=== PATIENT | female | born 2000 | race Caucasian/White ===

== ENCOUNTER 2020-08-07 21:25 | Observation (INO) ==
[2020-08-07 23:26] LABS: Amorphous Sediment,Urine Few per hpf (None-Few); Bacteria,Urine Few per hpf (None-Few); Bilirubin,Urine Negative (Negative); Blood,Urine Small (Negative); Clarity,Urine Turbid (Clear); Color,Urine Light-Yellow (Yellow); Glucose,Urine (UA) Normal (Normal); Hyaline Casts,Urine Few per lpf (None Seen); Ketones,Urine 60 mg/dL (Negative); Leukocyte Esterase,Urine Large (Negative); Mucus,Urine Moderate per lpf (None-Few); Nitrite,Urine Negative (Negative); PH,Urine 6.5 pH Units (5.0-8.0); Protein,Urine 100 mg/dL (Neg-Trace); RBC,Urine TNTC per hpf (0-3); Specific Gravity,Urine 1.015 (1.010-1.025); Urobilinogen,Urine Normal (Normal); WBC,Urine TNTC per hpf (0-3)
[2020-08-07] MEDS ORDERED: Ringers Solution, Lactated 1,000 ML IVC ONE (23:31)
[2020-08-07] MEDS ORDERED: cefTRIAXone 1,000 MG in Water for inj. (sterile) 10 ML IVP ONE (23:31)
[2020-08-08 00:02] LABS: Candida DNA DETECTED (Not Detect); Gardnerella DNA DETECTED (Not Detect); Trichomonas DNA DETECTED (Not Detect)
[2020-08-08] MEDS ORDERED: MetroNIDAZOLE 500 MG/100 ML 500 MG/100 ML BAG IVPB ONE (00:05)
[2020-08-08] MEDS ORDERED: metroNIDAZOLE 500 MG TABLET PO ONE (00:08)
[2020-08-11 11:00] LABS: SARS-CoV-2 by NAA Not Detected (Not Detect)
== END 2020-08-08 01:25 | disposition home or self-care (01) ==
LOC: 1NENULAB
PROVIDERS: ADMIT Obstetrics & Gynecology; ATTEND Obstetrics & Gynecology

== ENCOUNTER 2020-08-23 08:00 | Inpatient (IN) ==
[2020-08-23] MEDS ORDERED: Naloxone 0.4 MG/ML INJ IVP PRN (08:09)
[2020-08-23] MEDS ORDERED: Metoclopramide 10 MG/2 ML VIAL IVP PRN (08:09)
[2020-08-23] MEDS ORDERED: Ondansetron 4 MG/2 ML VIAL IVP PRN (08:09)
[2020-08-23] MEDS ORDERED: Famotidine 20 MG/2 ML VIAL IVP PRN (08:09)
[2020-08-23] MEDS ORDERED: miSOPROStoL 25 MCG TABLET VG SCH (08:45)
[2020-08-23 08:49] LABS: Basophils % 0.3 %; Eosinophils # 0.1 K/mcL (0.0-0.6); Eosinophils % 1.5 %; Hematocrit 29.9 % (35.3-44.9); Hemoglobin 9.4 g/dL (11.5-15.4); Immature Granulocytes % 0.3 % (0-4); Lymphocytes # 1.5 K/mcL (0.6-4.6); Lymphocytes % 23.7 %; Mean Corpuscular HGB Conc 31.4 g/dL (31.6-35.5); Mean Corpuscular Hemoglobin 25.5 pg (28.0-33.3); Mean Platelet Volume 10.5 fL (9.4-12.4); Monocytes # 0.6 K/mcL (0.0-1.3); Monocytes % 10.3 %; Neutrophils # 3.9 K/mcL (1.6-8.9); Platelet Count 337 K/mcL (140-400); Red Blood Count 3.69 M/mcL (3.82-4.97); Red Cell Distribution Width 12.5 % (11.5-14.5); Segmented Neutrophils % 63.9 %; White Blood Count 6.1 K/mcL (4.3-11.1)
[2020-08-23] MEDS: Ringers Solution, Lactated 1,000 ML IVC SCH ×2 (09:21→20:04)
[2020-08-23] MEDS ORDERED: Ringers Solution, Lactated 500 ML IVC ONE (09:23)
[2020-08-23] MEDS ORDERED: Acetaminophen 325 MG TABLET PO ONE (09:23)
[2020-08-23] MEDS ORDERED: EPHEDrine 50 MG/ML VIAL IVP PRN (09:59)
[2020-08-23] MEDS ORDERED: Epidural Premix (fent/bupiv) 110 ML EP SCH (10:00)
[2020-08-23 10:50] LABS: Alanine Aminotransferase 5 Units/L (7-52); Aspartate Amino Transferase 11 Units/L (13-39); Lactate Dehydrogenase 152 Units/L (140-271); Uric Acid 4.9 mg/dL (2.3-7.6); eGFR For African Americans > 60 (> 60); eGFR For Non-African Americans > 60 (> 60)
[2020-08-23 11:23] LABS: Amphetamine Screen,Urine Negative ng/mL (Cutoff=1000); Barbiturate Screen,Urine Negative ng/mL (Cutoff=200); Benzodiazepines Screen,Urine Negative ng/mL (Cutoff=200); Cannabinoid Screen,Urine Negative ng/mL (Cutoff = 50); Cocaine Screen,Urine Negative ng/mL (Cutoff= 300); Opiate Screen,Urine Negative ng/mL (Cutoff=300); Phencyclidine Screen,Urine Negative ng/mL (Cutoff=25)
[2020-08-23 11:40] LABS: Protein/Creatinine Ratio,Urine 4.2 mg/mg (0.00-0.20)
[2020-08-23] MEDS ORDERED: Calcium Gluconate 1,000 MG/10 ML VIAL IVP PRN ×2 (11:44→23:38)
[2020-08-23] MEDS ORDERED: Magnesium Sulf 20 gm/SW 500mL 20 GM/500 ML IV.SOLN IVC SCH (11:45)
[2020-08-23] MEDS ORDERED: *HR* FentaNYL (PF) 100 MCG/2 ML VIAL ONE (12:04)
[2020-08-23] MEDS ORDERED: Ropivacaine/PF 0.2% 20 ML VIAL ONE (12:04)
[2020-08-23] MEDS ORDERED: Oxytocin 20 units/ LR 1000 mL 20 UNIT/1,000 ML BAG IVC ONE (16:24)
[2020-08-23] MEDS ORDERED: Oxytocin 20 units/ LR 1000 mL 20 UNIT/1,000 ML BAG IVC SCH (16:30)
[2020-08-23] MEDS ORDERED: *HR* FentaNYL (PF) 100 MCG/2 ML VIAL IVP ONE (18:35)
[2020-08-23] MEDS ORDERED: Lidocaine 1% 20 ML MDV ONE (22:15)
[2020-08-23] MEDS ORDERED: Lanolin 7 G OINT...G. TP PRN (23:38)
[2020-08-23] MEDS ORDERED: *HR* HYDROcodone/Acet 5/325 mg TABLET PO PRN (23:38)
[2020-08-23] MEDS ORDERED: Benzocaine/Menthol 56 GM AEROSOL SPRAY TP PRN (23:38)
[2020-08-23] MEDS ORDERED: Acetaminophen 325 MG TABLET PO PRN (23:38)
[2020-08-24] MEDS: Oxytocin 20 units/ LR 1000 mL 20 UNIT/1,000 ML BAG IVC SCH ×2 (00:04→17:29)
[2020-08-24] MEDS: Magnesium Sulf 20 gm/SW 500mL 20 GM/500 ML IV.SOLN IVC SCH ×3 (00:05→18:36)
[2020-08-24 06:20] LABS: Basophils % 0.2 %; Eosinophils % 0.1 %; Hematocrit 27.6 % (35.3-44.9); Hemoglobin 8.7 g/dL (11.5-15.4); Immature Granulocytes % 0.5 % (0-4); Lymphocytes # 1.3 K/mcL (0.6-4.6); Lymphocytes % 9.7 %; Mean Corpuscular HGB Conc 31.5 g/dL (31.6-35.5); Mean Corpuscular Hemoglobin 25.7 pg (28.0-33.3); Mean Corpuscular Volume 81.4 fL (83.0-100.0); Mean Platelet Volume 10.4 fL (9.4-12.4); Monocytes # 0.7 K/mcL (0.0-1.3); Monocytes % 5.2 %; Neutrophils # 11.1 K/mcL (1.6-8.9); Platelet Count 322 K/mcL (140-400); Red Blood Count 3.39 M/mcL (3.82-4.97); Red Cell Distribution Width 12.6 % (11.5-14.5); Segmented Neutrophils % 84.3 %
[2020-08-24 06:25] LABS: White Blood Count 13.2 K/mcL (4.3-11.1)
[2020-08-24 06:39] LABS: Alanine Aminotransferase 4 Units/L (7-52); Aspartate Amino Transferase 11 Units/L (13-39); BUN/Creatinine Ratio 9 (6-26); Blood Urea Nitrogen 4 mg/dL (6-20); Lactate Dehydrogenase 221 Units/L (140-271); Uric Acid 5.4 mg/dL (2.3-7.6); eGFR For African Americans > 60 (> 60); eGFR For Non-African Americans > 60 (> 60)
[2020-08-24] MEDS: Prenatal Vit/FA 1 EACH TABLET PO SCH (09:15)
[2020-08-24] MEDS: Ibuprofen 600 MG TABLET PO PRN (12:56)
[2020-08-25 08:14] VITALS: BP 126/77
[2020-08-25] MEDS: Prenatal Vit/FA 1 EACH TABLET PO SCH (09:03)
[2020-08-25] MEDS: Ibuprofen 600 MG TABLET PO PRN (09:03)
== END 2020-08-25 14:05 | disposition home or self-care (01) | DRG 560 ==
LOC: 1NENULAB 08:08 → 1NENUOBS 08-24 01:41
PROVIDERS: ADMIT Obstetrics & Gynecology; ATTEND Obstetrics & Gynecology